=== PATIENT | female | born 1995 | race Caucasian/White ===

== ENCOUNTER 2017-01-12 10:35 | Inpatient (IN) | payer BC, OTHER ==
[2017-01-14] MEDS ORDERED: ANCEF VIAL 1 GM ONE (06:36)
[2017-01-14] MEDS ORDERED: LR 1000 ML IV 1,000 ML IV ONE ×2 (06:36→07:27)
[2017-01-14] MEDS ORDERED: NS 50 ML IV + SPIKE MINIBAG* 50 ML IV ONE (06:36)
[2017-01-14] MEDS ORDERED: ANCEF VIAL 1 GM 1 GM in NS 50 ML IV + SPIKE MINIBAG* 50 ML IV PRN (06:51)
[2017-01-14] MEDS ORDERED: D5 1/2 NS 1000 ML 1,000 ML IV SCH (06:51)
[2017-01-14] MEDS ORDERED: DURAMORPH ONE (06:58)
[2017-01-14] MEDS ORDERED: NS IRRIGATION 1000 ML 1,000 ML IR ONE (08:00)
[2017-01-14 08:12] LABS: BILIRUBIN,URINE NEGATIVE (NEGATIVE); BLOOD/HEMOGLOBIN,URINE 1+ (NEGATIVE); GLUCOSE, URINE NEGATIVE (NEGATIVE); KETONES,URINE NEGATIVE (NEGATIVE); LEUKOCYTE ESTERASE ,URINE NEGATIVE (NEGATIVE); NITRITES,URINE NEGATIVE (NEGATIVE); PH,URINE 6.5 (5.0 - 8.0); PROTEIN,URINE NEGATIVE (NEGATIVE); UROBILINOGEN,URINE NORMAL (NORMAL)
[2017-01-14 08:19] LABS: APPEARANCE,URINE HAZY (CLEAR); BACTERIA,URINE TRACE /HPF (NEGATIVE); COLOR,URINE YELLOW (YELLOW); RBC,URINE 0-2 /HPF (NEGATIVE); SQUAMOUS EPITHELIAL CELL,UR FEW /HPF (NEGATIVE)
[2017-01-14] MEDS ORDERED: PHENERGAN INJ 25 MG IVP PRN (08:34)
[2017-01-14] MEDS ORDERED: ZOFRAN INJ 4 MG VIAL IVP PRN ×2 (08:34→10:12)
[2017-01-14] MEDS ORDERED: REGLAN INJ 10 MG VIAL IVP PRN ×2 (08:34→10:12)
[2017-01-14] MEDS ORDERED: BENADRYL INJ 50 MG VIAL IVP PRN (08:34)
[2017-01-14] MEDS ORDERED: D5 1/2 NS 1L W PITOCIN 20 UNITS/L 20 UNITS/1,000 ML BAG IV ONE (08:53)
[2017-01-14] MEDS ORDERED: ADACEL TDaP IM ONE (10:12)
[2017-01-14] MEDS ORDERED: D5 1/2 NS 1000 ML 1,000 ML with PITOCIN 20 UNITS IV SCH ×2 (10:12)
[2017-01-14] MEDS ORDERED: PERCOCET TAB 5/325 MG PO PRN (10:12)
[2017-01-14] MEDS ORDERED: NARCAN INJ IVP PRN (10:12)
[2017-01-14] MEDS ORDERED: MYLICON TAB 80 MG CHEW PO PRN (10:12)
[2017-01-14] MEDS: PRENATAL PLUS PO SCH ×2 (10:55→11:24)
[2017-01-14] MEDS: ZANTAC PO SCH ×3 (10:55→23:21)
[2017-01-14] MEDS ORDERED: PREVNAR 13 IM ONE (11:14)
[2017-01-14] MEDS: BENADRYL INJ 50 MG VIAL IVP PRN ×2 (11:23→16:13)
[2017-01-14] MEDS ORDERED: METHERGINE IM ONE (11:33)
[2017-01-14] MEDS ORDERED: METHERGINE IM NR (13:00)
[2017-01-14] MEDS: TORADOL 30 MG VIAL IVP PRN ×2 (14:20→23:21)
[2017-01-14] MEDS ORDERED: EPHEDRINE SULFATE INJ ONE (16:04)
[2017-01-14] MEDS ORDERED: PITOCIN ONE (16:04)
[2017-01-15 05:39] LABS: HEMATOCRIT 28.3 % (36.0-47.0); HEMOGLOBIN 9.5 g/dL (12.0-16.0)
[2017-01-15] MEDS ORDERED: MOTRIN TAB 800 MG PO PRN (07:45)
[2017-01-15] MEDS: ZANTAC PO SCH ×2 (09:21→20:04)
[2017-01-15] MEDS: PERCOCET TAB 5/325 MG PO PRN ×2 (09:21→19:52)
[2017-01-15] MEDS: COLACE CAP 100 MG PO SCH ×2 (09:21→19:59)
[2017-01-15] MEDS: PRENATAL PLUS PO SCH (09:21)
[2017-01-15] MEDS: FERROUS SULFATE PO SCH ×2 (09:21→17:44)
[2017-01-15] MEDS: BACTROBAN OINT TOP SCH (15:00)
[2017-01-16] MEDS: BACTROBAN OINT TOP SCH ×2 (01:21→08:44)
[2017-01-16] MEDS: FERROUS SULFATE PO SCH (06:09)
[2017-01-16] MEDS: PERCOCET TAB 5/325 MG PO PRN ×2 (06:09→12:12)
[2017-01-16] MEDS: ZANTAC PO SCH (08:43)
[2017-01-16] MEDS: COLACE CAP 100 MG PO SCH (08:43)
[2017-01-16] MEDS: PRENATAL PLUS PO SCH (08:43)
[2017-01-16 12:12] VITALS: BP 118/58
== END 2017-01-16 13:03 | disposition home or self-care (01) | DRG 775 ==
LOC: UNDOADMIN 10:35 → OBS 10:35 → LD 01-14 06:15 → MED/SURG 01-14 08:47
PROVIDERS: ADMIT Specialist; ATTEND Specialist
PROC: 3E0234Z Introduction of Serum, Toxoid and Vaccine into Muscle, Percutaneous Approach (ICD-10-PCS; 2017-01-14)
PROC: 3E0234Z Introduction of Serum, Toxoid and Vaccine into Muscle, Percutaneous Approach (ICD-10-PCS; 2017-01-14)
PROC: 10D00Z1 Extraction of Products of Conception, Low, Open Approach (ICD-10-PCS; principal; 2017-01-14 07:30)
DX: O99.613 Diseases of the digestive system complicating pregnancy, third trimester (principal); Z37.0 Single live birth; O34.43 Maternal care for other abnormalities of cervix, third trimester; Z3A.39 39 weeks gestation of pregnancy; Z23 Encounter for immunization
CPT/HCPCS: 36415; 81001; 85014; 85018; A4216; A4222; S0197; 90670; J0690; J1200; J1885; J2210; J2590; J2765; J7120

== ENCOUNTER → 2017-01-12 | Outpatient (CLI) | payer BC, OTHER ==
[2017-01-12 11:23] LABS: BASOPHILS % (AUTO) 0.3 % (0.2-1.0); EOSINOPHILS % (AUTO) 0.2 % (0.9-2.9); HEMATOCRIT 34.9 % (36.0-47.0); LYMPHOCYTES # (AUTO) 2.2 X10^3/uL (1.3-2.9); LYMPHOCYTES % (AUTO) 21.1 % (21.0-51.0); MEAN CORPUSCULAR HEMOGLOBIN 30.7 pg (27.0-34.0); MEAN CORPUSCULAR HGB CONC 34.5 g/dL (33.0-35.0); MEAN CORPUSCULAR VOLUME 89.1 fL (80.0-100.0); MEAN PLATELET VOLUME 8.8 fL (7.4-11.0); MONOCYTES # (AUTO) 0.6 x10^3/uL (0.3-0.8); MONOCYTES % (AUTO) 5.9 % (0.0-13.0); NEUTROPHILS # (AUTO) 7.7 x10^3/uL (2.2-4.8); NEUTROPHILS % (AUTO) 72.5 % (42.0-75.0); PLATELET COUNT 230 X10^3/uL (150.0-450.0); RED BLOOD COUNT 3.92 X10^6/uL (3.5-5.4); RED CELL DISTRIBUTION WIDTH 13.3 % (11.6-16.5); WHITE BLOOD COUNT 10.6 X10^3/uL (3.6-10.0)
[2017-01-12 11:27] LABS: BLOOD UREA NITROGEN 5 mg/dL (7-18); CHLORIDE 105 mmol/L (98-107); CREATININE 0.63 mg/dL (0.55-1.02); GLUCOSE 79 mg/dL (65-99); SODIUM 134 mmol/L (136-145); eGFR BLACK RACES > 60 (>60); eGFR NON BLACK RACES > 60 (>60)
[2017-01-12 11:36] LABS: BILIRUBIN,URINE NEGATIVE (NEGATIVE); BLOOD/HEMOGLOBIN,URINE NEGATIVE (NEGATIVE); GLUCOSE, URINE NEGATIVE (NEGATIVE); KETONES,URINE NEGATIVE (NEGATIVE); LEUKOCYTE ESTERASE ,URINE 1+ (NEGATIVE); NITRITES,URINE NEGATIVE (NEGATIVE); PROTEIN,URINE NEGATIVE (NEGATIVE); UROBILINOGEN,URINE NORMAL (NORMAL)
[2017-01-12 12:23] LABS: APPEARANCE,URINE SLIGHTLY HAZY (CLEAR); BACTERIA,URINE TRACE /HPF (NEGATIVE); COLOR,URINE YELLOW (YELLOW); MUCUS,URINE FEW /HPF (NEGATIVE); SQUAMOUS EPITHELIAL CELL,UR MODERATE /HPF (NEGATIVE)
== END ==
LOC: LAB 10:39
PROVIDERS: ATTEND Specialist
DX: Z01.818 Encounter for other preprocedural examination (principal); Z01.812 Encounter for preprocedural laboratory examination; Z34.83 Encounter for supervision of other normal pregnancy, third trimester
CPT/HCPCS: 36415; 80048; 81001; 85025; 85610; 85730; 86592; 86850; 86900; 86901; 87086

== ENCOUNTER 2019-11-08 06:11 | Inpatient (IN) ==
[2019-11-08] MEDS ORDERED: LR 1000 ML IV 1,000 ML IV ONE (06:29)
[2019-11-08] MEDS ORDERED: ANCEF 1 GRAM IV PREMIX* 1 G/50 ML BAG IV ONE (06:30)
[2019-11-08] MEDS ORDERED: ANCEF VIAL 1 GRAM IVP ONE (06:50)
[2019-11-08] MEDS ORDERED: D5 1/2 NS 1000 ML 1,000 ML IV SCH (06:50)
[2019-11-08] MEDS ORDERED: DECADRON INJ ONE (06:57)
[2019-11-08] MEDS ORDERED: XYLOCAINE 1 % (PLAIN) ONE (06:58)
[2019-11-08] MEDS ORDERED: DILAUDID INJ ONE (06:58)
[2019-11-08] MEDS ORDERED: NS 1000 ML 1,000 ML ONE ×2 (06:59→08:08)
[2019-11-08] MEDS ORDERED: DILAUDID INJ IVP PRN (08:50)
[2019-11-08] MEDS ORDERED: PHENERGAN INJ 25 MG IM PRN (08:50)
[2019-11-08] MEDS ORDERED: REGLAN INJ 10 MG VIAL IVP PRN ×2 (08:50→09:12)
[2019-11-08] MEDS ORDERED: BENADRYL INJ 50 MG VIAL IVP PRN ×2 (08:50→09:12)
[2019-11-08] MEDS ORDERED: ZOFRAN INJ 4 MG VIAL IVP PRN (08:50)
[2019-11-08] MEDS ORDERED: D5 1/2 NS 1L W PITOCIN 20 UNITS/L 20 UNITS/1,000 ML BAG IV ONE (09:02)
[2019-11-08] MEDS ORDERED: NARCAN INJ IVP PRN (09:12)
[2019-11-08] MEDS ORDERED: MYLICON TAB 80 MG CHEW PO PRN (09:12)
[2019-11-08] MEDS ORDERED: PERCOCET TAB 5/325 MG PO PRN ×2 (09:12→15:35)
[2019-11-08] MEDS ORDERED: TORADOL 30 MG VIAL IVP PRN (09:12)
[2019-11-08] MEDS ORDERED: D5 1/2 NS 1000 ML 1,000 ML with PITOCIN 20 UNITS IV SCH ×2 (09:12)
[2019-11-08] MEDS ORDERED: ADACEL or BOOSTRIX TDaP VACCINE IM ONE (09:12)
[2019-11-08] MEDS: PRENATAL PLUS PO SCH ×2 (10:22→10:30)
[2019-11-08] MEDS: PROTONIX TAB 40 MG PO SCH (10:22)
[2019-11-08] MEDS: ZOFRAN INJ 4 MG VIAL IVP PRN ×2 (10:37→18:23)
[2019-11-08] MEDS ORDERED: MOTRIN TAB 800 MG PO PRN (15:35)
[2019-11-08] MEDS: COLACE CAP 100 MG PO SCH (21:34)
[2019-11-08] MEDS: BACTROBAN TOPICAL OINT TOP SCH (21:34)
[2019-11-09 05:52] LABS: HEMATOCRIT 29.2 % (36.0-47.0)
[2019-11-09] MEDS: BACTROBAN TOPICAL OINT TOP SCH (05:52)
[2019-11-09 06:08] LABS: HEMOGLOBIN 9.8 g/dL (12.0-16.0)
[2019-11-09 08:04] VITALS: BP 106/57
[2019-11-09] MEDS ORDERED: ADACEL or BOOSTRIX TDaP VACCINE IM ONE (08:14)
[2019-11-09] MEDS: PROTONIX TAB 40 MG PO SCH (08:30)
[2019-11-09] MEDS: COLACE CAP 100 MG PO SCH (08:30)
[2019-11-09] MEDS: PRENATAL PLUS PO SCH ×2 (08:30→08:38)
== END 2019-11-09 12:10 | disposition home or self-care (01) | DRG 785 ==
LOC: LD 06:11 → MED/SURG 09:10
PROVIDERS: ADMIT Specialist; ATTEND Specialist
DX: O99.613 Diseases of the digestive system complicating pregnancy, third trimester; Z3A.39 39 weeks gestation of pregnancy; B95.1 Streptococcus, group B, as the cause of diseases classified elsewhere; Z37.0 Single live birth; Z30.2 Encounter for sterilization; O99.89 Other specified diseases and conditions complicating pregnancy, childbirth and the puerperium; Z23 Encounter for immunization; N85.8 Other specified noninflammatory disorders of uterus; O34.211 Maternal care for low transverse scar from previous cesarean delivery; O99.824 Streptococcus B carrier state complicating childbirth
CPT/HCPCS: 36415; 85014; 85018; 90715; A4216; A4222; J0690; J1100; J1170; J2405; J2765; J3490; J7030; J7120; S0197; S5010